=== PATIENT | male | born 1960 | race Caucasian/White ===

== ENCOUNTER 2019-01-06 21:37 | Inpatient (IN) | payer OTHER ==
[2019-01-06] MEDS ORDERED: ONDANSETRON HCL 4 MG TAB PO ONE (22:01)
[2019-01-06] MEDS ORDERED: ONDANSETRON 4 MG ODT ONE (22:11)
[2019-01-06] MEDS ORDERED: ONDANSETRON HCL 4 MG TAB ONE (22:12)
[2019-01-06 22:23] LABS: BASOPHILS % (AUTO) 1 % (0-3); EOSINOPHILS % (AUTO) 1 % (0-9); HEMATOCRIT 38 % (39-53); HEMOGLOBIN 12.3 gm/dl (13.5-17.7); MEAN CORPUSCULAR HEMOGLOBIN 33.9 pg (27.0-32.0); MEAN CORPUSCULAR HGB CONC 32.2 gm/dl (32.0-36.0); NEUTROPHILS % (AUTO) 74.4 % (37-80)
[2019-01-06] MEDS ORDERED: LACTULOSE 10 GM/15 ML SOL ONE (22:28)
[2019-01-06 22:39] LABS: ALBUMIN 1.5 gm/dl (3.4-5.0); BILIRUBIN,DIRECT 0.3 mg/dl (0.0-0.2); BILIRUBIN,TOTAL 0.6 mg/dl (0.2-1.0); CALCIUM 7.8 mg/dl (8.5-10.1); CARBON DIOXIDE 30.7 mEq/L (21-32); CREATININE 0.98 mg/dl (0.80-1.30); MEAN CORPUSCULAR VOLUME 106 fL (80-100); TOTAL PROTEIN 5.5 gm/dl (6.4-8.2)
[2019-01-06 22:40] LABS: POTASSIUM 3.5 mMol/L (3.5-5.1)
[2019-01-06] MEDS ORDERED: SPIRONOLACTONE 25 MG TAB PO SCH (23:45)
[2019-01-07] MEDS ORDERED: TRAMADOL HYDROCHLORIDE 50 MG TAB PO ONE (00:20)
[2019-01-07] MEDS ORDERED: TRAMADOL HYDROCHLORIDE 50 MG TAB ONE (00:29)
[2019-01-07 00:32] LABS: AMMONIA 29 umol/L (11-32)
[2019-01-07] MEDS ORDERED: METOCLOPRAMIDE HYDROCHLORIDE 5 MG/ML SOL IV ONE (01:04)
[2019-01-07] MEDS ORDERED: GUAIFENESIN 200 MG/10 ML SOL PO PRN (01:38)
[2019-01-07] MEDS: SODIUM CHLORIDE 0.9% FLUSH 10 ML SOL IV SCH ×2 (01:45→18:45)
[2019-01-07] MEDS ORDERED: TRAMADOL HYDROCHLORIDE 50 MG TAB PO PRN (02:11)
[2019-01-07] MEDS ORDERED: LACTULOSE 10 GM/15 ML SOL PR PRN (02:12)
[2019-01-07] MEDS: FUROSEMIDE 40 MG SOL IV SCH (02:38)
[2019-01-07 07:39] LABS: CALCIUM 7.9 mg/dl (8.5-10.1); CARBON DIOXIDE 27.6 mEq/L (21-32); CREATININE 0.88 mg/dl (0.80-1.30); POTASSIUM 3.6 mMol/L (3.5-5.1)
[2019-01-07 07:51] LABS: BASOPHILS % (AUTO) 2 % (0-3); EOSINOPHILS % (AUTO) 1 % (0-9); HEMATOCRIT 37 % (39-53); HEMOGLOBIN 11.4 gm/dl (13.5-17.7); LYMPHOCYTES % (AUTO) 20.9 % (10-50); MEAN CORPUSCULAR HEMOGLOBIN 33.5 pg (27.0-32.0); MEAN CORPUSCULAR HGB CONC 31.3 gm/dl (32.0-36.0); MONOCYTES % (AUTO) 7.8 % (0-12); NEUTROPHILS % (AUTO) 67.5 % (37-80)
[2019-01-07 07:53] LABS: MEAN CORPUSCULAR VOLUME 107 fL (80-100)
[2019-01-07] MEDS: TRAMADOL HYDROCHLORIDE 50 MG TAB PO PRN ×2 (08:31→15:46)
[2019-01-07] MEDS: METOPROLOL TARTRATE 25 MG TAB PO SCH (08:31)
[2019-01-07] MEDS: FOLIC ACID 1 MG TAB PO SCH (08:31)
[2019-01-07] MEDS: PANTOPRAZOLE SODIUM 40 MG ECT PO SCH (08:31)
[2019-01-07] MEDS: LACTULOSE 10 GM/15 ML SOL PO SCH ×2 (08:31→23:56)
[2019-01-07] MEDS: THIAMINE 100 MG TAB PO SCH (08:33)
[2019-01-07 08:36] LABS: INR 1.11 (0.86-1.12)
[2019-01-07] MEDS ORDERED: MELATONIN 3 MG TAB PO SCH (21:00)
[2019-01-08] MEDS: TRAMADOL HYDROCHLORIDE 50 MG TAB PO PRN (00:31)
[2019-01-08 07:10] LABS: CALCIUM 7.8 mg/dl (8.5-10.1); CARBON DIOXIDE 31.9 mEq/L (21-32); CREATININE 0.93 mg/dl (0.80-1.30); POTASSIUM 3.8 mMol/L (3.5-5.1)
[2019-01-08 07:18] LABS: BASOPHILS % (AUTO) 2 % (0-3); EOSINOPHILS % (AUTO) 1 % (0-9); HEMATOCRIT 39 % (39-53); LYMPHOCYTES % (AUTO) 13.9 % (10-50); MEAN CORPUSCULAR HEMOGLOBIN 33.5 pg (27.0-32.0); MEAN CORPUSCULAR HGB CONC 31.1 gm/dl (32.0-36.0); MONOCYTES % (AUTO) 4.9 % (0-12); NEUTROPHILS % (AUTO) 78.5 % (37-80)
[2019-01-08 07:32] LABS: MEAN CORPUSCULAR VOLUME 108 fL (80-100)
[2019-01-08] MEDS: METOPROLOL TARTRATE 25 MG TAB PO SCH (08:12)
[2019-01-08] MEDS: PANTOPRAZOLE SODIUM 40 MG ECT PO SCH (08:12)
[2019-01-08] MEDS: FOLIC ACID 1 MG TAB PO SCH (08:12)
[2019-01-08] MEDS: FUROSEMIDE 40 MG SOL IV SCH (08:13)
[2019-01-08] MEDS: THIAMINE 100 MG TAB PO SCH (08:13)
[2019-01-08] MEDS ORDERED: FUROSEMIDE 40 MG SOL IV SCH ×2 (08:15→09:00)
[2019-01-08 08:19] VITALS: BP 109/72; PULSE 94; RESP 18; TEMP 96.7; O2SAT 94
[2019-01-08] MEDS ORDERED: SPIRONOLACTONE 25 MG TAB PO SCH (09:00)
[2019-01-08] MEDS ORDERED: SERTRALINE HYDROCHLORIDE 50 MG TAB PO SCH (21:00)
== END 2019-01-08 12:25 | DRG 433 ==
LOC: ED 21:37 → ACUTE CARE 01-07 01:05
PROVIDERS: ADMIT Family Medicine; ATTEND Family Medicine
DX: K70.31 Alcoholic cirrhosis of liver with ascites (principal); J90 Pleural effusion, not elsewhere classified; E46 Unspecified protein-calorie malnutrition; R10.9 Unspecified abdominal pain; R06.02 Shortness of breath; R53.1 Weakness; E88.09 Other disorders of plasma-protein metabolism, not elsewhere classified
CPT/HCPCS: 36415; 71046; 74177; 80048; 80076; 82140; 85025; 85610; 85730; 94760; 99221; 99283; J1940; J2765; Q9967; A6232; A9270-GY

== ENCOUNTER 2019-01-11 16:01 | Inpatient (IN) | payer OTHER ==
[2019-01-11 16:31] LABS: ABG PH 7.41 (7.35-7.45)
[2019-01-11 16:36] LABS: BASOPHILS % (AUTO) 2 % (0-3); EOSINOPHILS % (AUTO) 1 % (0-9); HEMATOCRIT 36 % (39-53); HEMOGLOBIN 11.1 gm/dl (13.5-17.7); INR 1.09 (0.86-1.12); LYMPHOCYTES % (AUTO) 16.6 % (10-50); MEAN CORPUSCULAR HEMOGLOBIN 33.4 pg (27.0-32.0); MEAN CORPUSCULAR HGB CONC 31.1 gm/dl (32.0-36.0); MONOCYTES % (AUTO) 8.2 % (0-12); NEUTROPHILS % (AUTO) 72.9 % (37-80)
[2019-01-11 16:38] LABS: MEAN CORPUSCULAR VOLUME 107 fL (80-100)
[2019-01-11 16:44] LABS: ALBUMIN 1.3 gm/dl (3.4-5.0); ALKALINE PHOSPHATASE 163 IU/L (46-116); ALT 22 IU/L (14-63); AST 30 IU/L (15-37); BILIRUBIN,TOTAL 0.4 mg/dl (0.2-1.0); BLOOD UREA NITROGEN 11 mg/dl (7-18); CARBON DIOXIDE 31.7 mEq/L (21-32); CHLORIDE 101 mMol/L (98-107); CREATININE 0.97 mg/dl (0.80-1.30); GLUCOSE 109 mg/dl (74-106); SODIUM 137 mMol/L (136-145); TOTAL PROTEIN 5.1 gm/dl (6.4-8.2); TROP I < 0.017 ng/ml (0.000-0.056)
[2019-01-11] MEDS ORDERED: ALUMINUM/MAGNESIUM 30 ML SUS PO ONE (16:51)
[2019-01-11] MEDS ORDERED: LIDOCAINE HCL 2% (VISCOUS) 15 ML SOL MT ONE (16:51)
[2019-01-11] MEDS ORDERED: ALUMINUM/MAGNESIUM 30 ML SUS ONE (16:53)
[2019-01-11] MEDS ORDERED: LIDOCAINE HCL 2% (VISCOUS) 15 ML SOL ONE (16:53)
[2019-01-11] MEDS ORDERED: MENTHOL PO PRN (18:31)
[2019-01-11] MEDS ORDERED: GUAIFENESIN 200 MG/10 ML SOL PO PRN (18:31)
[2019-01-11] MEDS ORDERED: ALBUTEROL NEB 0.63 MG/3 ML SOL IH PRN (18:31)
[2019-01-11] MEDS ORDERED: TETRAHYDROZOLINE HCL EACHEYE PRN (18:31)
[2019-01-11] MEDS ORDERED: SPIRONOLACTONE 25 MG TAB PO ONE (18:40)
[2019-01-11] MEDS ORDERED: FUROSEMIDE 40 MG SOL IV ONE (19:30)
[2019-01-11] MEDS: SODIUM CHLORIDE 0.9% FLUSH 10 ML SOL IV PRN (19:55)
[2019-01-11] MEDS ORDERED: FUROSEMIDE 40 MG SOL IV SCH (21:00)
[2019-01-11] MEDS ORDERED: PATIENT EDUCATION 1 MISC PRN (21:08)
[2019-01-11] MEDS: SERTRALINE HYDROCHLORIDE 50 MG TAB PO SCH (21:15)
[2019-01-11] MEDS: ALBUTEROL/IPRATROPIUM 1 VIAL SOL INH SCH (21:16)
[2019-01-11] MEDS: MELATONIN 3 MG TAB PO SCH (21:16)
[2019-01-12] MEDS ORDERED: ALBUTEROL NEB SOL 2.5MG/3ML 1 VIAL SOL ONE (00:56)
[2019-01-12] MEDS: ALBUTEROL NEB SOL 2.5MG/3ML 1 VIAL SOL NEB PRN (01:29)
[2019-01-12] MEDS: SODIUM CHLORIDE 0.9% FLUSH 10 ML SOL IV SCH ×5 (01:33→21:24)
[2019-01-12 08:17] LABS: CALCIUM 7.4 mg/dl (8.5-10.1); CREATININE 0.88 mg/dl (0.80-1.30); POTASSIUM 3.8 mMol/L (3.5-5.1); TROP I 0.021 ng/ml (0.000-0.056)
[2019-01-12 08:24] LABS: CARBON DIOXIDE 33.1 mEq/L (21-32)
[2019-01-12] MEDS: PANTOPRAZOLE SODIUM 40 MG ECT PO SCH (09:50)
[2019-01-12] MEDS: SPIRONOLACTONE 25 MG TAB PO SCH ×2 (09:50→12:04)
[2019-01-12] MEDS: THIAMINE 100 MG TAB PO SCH (09:50)
[2019-01-12] MEDS: METOPROLOL TARTRATE 25 MG TAB PO SCH (09:50)
[2019-01-12] MEDS: FOLIC ACID 1 MG TAB PO SCH (09:50)
[2019-01-12] MEDS: FUROSEMIDE 40 MG SOL IV SCH ×2 (09:50→12:04)
[2019-01-12] MEDS: MULTIVITAMIN2 1 EA TAB PO SCH (09:53)
[2019-01-12] MEDS: ALBUTEROL/IPRATROPIUM 1 VIAL SOL INH SCH ×4 (09:57→21:24)
[2019-01-12 13:27] LABS: BLOOD UREA NITROGEN 11 mg/dl (7-18); CALCIUM 7.7 mg/dl (8.5-10.1); CHLORIDE 99 mMol/L (98-107); CREATININE 0.98 mg/dl (0.80-1.30); GLUCOSE 119 mg/dl (74-106); POTASSIUM 3.6 mMol/L (3.5-5.1); SODIUM 136 mMol/L (136-145); TROP I < 0.017 ng/ml (0.000-0.056)
[2019-01-12 13:43] LABS: CARBON DIOXIDE 32.8 mEq/L (21-32)
[2019-01-12] MEDS: SERTRALINE HYDROCHLORIDE 50 MG TAB PO SCH (21:24)
[2019-01-12] MEDS: MELATONIN 3 MG TAB PO SCH (21:29)
[2019-01-13 07:58] LABS: ALBUMIN 1.3 gm/dl (3.4-5.0); BILIRUBIN,TOTAL 0.7 mg/dl (0.2-1.0); CALCIUM 7.8 mg/dl (8.5-10.1); CREATININE 0.82 mg/dl (0.80-1.30)
[2019-01-13 08:02] LABS: CARBON DIOXIDE 32.9 mEq/L (21-32); POTASSIUM 3.7 mMol/L (3.5-5.1)
[2019-01-13] MEDS: METOPROLOL TARTRATE 25 MG TAB PO SCH (09:41)
[2019-01-13] MEDS: THIAMINE 100 MG TAB PO SCH (09:41)
[2019-01-13] MEDS: MULTIVITAMIN2 1 EA TAB PO SCH (09:41)
[2019-01-13] MEDS: FUROSEMIDE 40 MG SOL IV SCH ×2 (09:41→12:05)
[2019-01-13] MEDS: PANTOPRAZOLE SODIUM 40 MG ECT PO SCH (09:41)
[2019-01-13] MEDS: SPIRONOLACTONE 25 MG TAB PO SCH ×2 (09:41→12:50)
[2019-01-13] MEDS: FOLIC ACID 1 MG TAB PO SCH (09:41)
[2019-01-13] MEDS: ALBUTEROL/IPRATROPIUM 1 VIAL SOL INH SCH ×4 (09:44→20:29)
[2019-01-13] MEDS: SODIUM CHLORIDE 0.9% FLUSH 10 ML SOL IV SCH ×3 (09:49→20:26)
[2019-01-13] MEDS ORDERED: DOCUSATE SODIUM 100 MG SGL PO PRN (11:11)
[2019-01-13 11:28] LABS: BASOPHILS % (AUTO) 1 % (0-3); EOSINOPHILS % (AUTO) 1 % (0-9); HEMATOCRIT 35 % (39-53); HEMOGLOBIN 10.9 gm/dl (13.5-17.7); LYMPHOCYTES % (AUTO) 8.1 % (10-50); MEAN CORPUSCULAR HGB CONC 30.9 gm/dl (32.0-36.0); MONOCYTES % (AUTO) 7.4 % (0-12)
[2019-01-13 11:37] LABS: MEAN CORPUSCULAR VOLUME 107 fL (80-100)
[2019-01-13] MEDS ORDERED: FUROSEMIDE 100 MG SOL IV ONE (12:04)
[2019-01-13] MEDS: ENOXAPARIN 40 MG SOL SC SCH (12:50)
[2019-01-13] MEDS: TRAMADOL HYDROCHLORIDE 50 MG TAB PO PRN (16:55)
[2019-01-13] MEDS: SERTRALINE HYDROCHLORIDE 50 MG TAB PO SCH (20:28)
[2019-01-13] MEDS: MELATONIN 3 MG TAB PO SCH (20:28)
[2019-01-14] MEDS: SODIUM CHLORIDE 0.9% FLUSH 10 ML SOL IV SCH ×3 (06:34→21:51)
[2019-01-14] MEDS: SPIRONOLACTONE 25 MG TAB PO SCH ×2 (08:38→11:44)
[2019-01-14] MEDS: FOLIC ACID 1 MG TAB PO SCH (08:38)
[2019-01-14] MEDS: PANTOPRAZOLE SODIUM 40 MG ECT PO SCH (08:39)
[2019-01-14] MEDS: MULTIVITAMIN2 1 EA TAB PO SCH (08:39)
[2019-01-14] MEDS: THIAMINE 100 MG TAB PO SCH (08:39)
[2019-01-14] MEDS: METOPROLOL TARTRATE 25 MG TAB PO SCH (08:40)
[2019-01-14 08:54] LABS: CALCIUM 7.5 mg/dl (8.5-10.1); CREATININE 0.84 mg/dl (0.80-1.30); POTASSIUM 3.5 mMol/L (3.5-5.1)
[2019-01-14 08:58] LABS: CARBON DIOXIDE 33.4 mEq/L (21-32)
[2019-01-14] MEDS: ALBUTEROL/IPRATROPIUM 1 VIAL SOL INH SCH ×4 (09:50→22:01)
[2019-01-14] MEDS ORDERED: TORSEMIDE 10 MG TABLET ONE ×2 (09:55→11:40)
[2019-01-14] MEDS: TORSEMIDE 20 MG TAB PO SCH ×2 (09:57→11:45)
[2019-01-14] MEDS: ENOXAPARIN 40 MG SOL SC SCH (11:46)
[2019-01-14] MEDS: FUROSEMIDE 40 MG SOL IV SCH (21:51)
[2019-01-14] MEDS: MELATONIN 3 MG TAB PO SCH (21:57)
[2019-01-14] MEDS: SERTRALINE HYDROCHLORIDE 50 MG TAB PO SCH (22:00)
[2019-01-15] MEDS: ALBUTEROL NEB SOL 2.5MG/3ML 1 VIAL SOL NEB PRN (07:22)
[2019-01-15 07:23] LABS: BASOPHILS % (AUTO) 2 % (0-3); EOSINOPHILS % (AUTO) 2 % (0-9); HEMATOCRIT 33 % (39-53); LYMPHOCYTES % (AUTO) 17.1 % (10-50); MEAN CORPUSCULAR HEMOGLOBIN 32.8 pg (27.0-32.0); MEAN CORPUSCULAR HGB CONC 30.8 gm/dl (32.0-36.0); MONOCYTES % (AUTO) 11.1 % (0-12); NEUTROPHILS % (AUTO) 67.4 % (37-80)
[2019-01-15 07:31] LABS: ALBUMIN 1.2 gm/dl (3.4-5.0); BILIRUBIN,TOTAL 0.4 mg/dl (0.2-1.0); CALCIUM 7.8 mg/dl (8.5-10.1); CREATININE 0.81 mg/dl (0.80-1.30); TOTAL PROTEIN 4.7 gm/dl (6.4-8.2)
[2019-01-15 07:34] LABS: MEAN CORPUSCULAR VOLUME 106 fL (80-100)
[2019-01-15 07:36] LABS: CARBON DIOXIDE 37.3 mEq/L (21-32)
[2019-01-15] MEDS: ALBUTEROL/IPRATROPIUM 1 VIAL SOL INH SCH ×4 (09:46→21:18)
[2019-01-15] MEDS: METOPROLOL TARTRATE 25 MG TAB PO SCH (09:48)
[2019-01-15] MEDS: PANTOPRAZOLE SODIUM 40 MG ECT PO SCH (09:48)
[2019-01-15] MEDS: MULTIVITAMIN2 1 EA TAB PO SCH (09:48)
[2019-01-15] MEDS: THIAMINE 100 MG TAB PO SCH (09:48)
[2019-01-15] MEDS: SPIRONOLACTONE 25 MG TAB PO SCH ×2 (09:49→12:53)
[2019-01-15] MEDS: FOLIC ACID 1 MG TAB PO SCH (09:50)
[2019-01-15] MEDS: ENOXAPARIN 40 MG SOL SC SCH (10:53)
[2019-01-15] MEDS: TORSEMIDE 20 MG TAB PO SCH (10:56)
[2019-01-15] MEDS: TORSEMIDE 10 MG TABLET PO SCH (12:54)
[2019-01-15] MEDS: SERTRALINE HYDROCHLORIDE 50 MG TAB PO SCH (21:25)
[2019-01-15] MEDS: MELATONIN 3 MG TAB PO SCH (21:26)
[2019-01-15] MEDS: TRAMADOL HYDROCHLORIDE 50 MG TAB PO PRN (21:45)
[2019-01-16 07:38] LABS: BASOPHILS % (AUTO) 3 % (0-3); EOSINOPHILS % (AUTO) 5 % (0-9); HEMATOCRIT 32 % (39-53); HEMOGLOBIN 9.7 gm/dl (13.5-17.7); LYMPHOCYTES % (AUTO) 26.9 % (10-50); MEAN CORPUSCULAR HEMOGLOBIN 33.2 pg (27.0-32.0); MEAN CORPUSCULAR HGB CONC 30.8 gm/dl (32.0-36.0); MONOCYTES % (AUTO) 9.2 % (0-12); NEUTROPHILS % (AUTO) 56.2 % (37-80)
[2019-01-16 07:45] LABS: MEAN CORPUSCULAR VOLUME 108 fL (80-100)
[2019-01-16 07:48] LABS: CALCIUM 7.7 mg/dl (8.5-10.1); CREATININE 0.82 mg/dl (0.80-1.30); POTASSIUM 4.1 mMol/L (3.5-5.1)
[2019-01-16 07:53] LABS: CARBON DIOXIDE 36.8 mEq/L (21-32)
[2019-01-16] MEDS ORDERED: FUROSEMIDE 40 MG SOL IV ONE (08:20)
[2019-01-16] MEDS: SPIRONOLACTONE 25 MG TAB PO SCH ×2 (09:09→11:55)
[2019-01-16] MEDS: TORSEMIDE 10 MG TABLET PO SCH ×2 (09:09→11:54)
[2019-01-16] MEDS: ALBUTEROL/IPRATROPIUM 1 VIAL SOL INH SCH ×4 (09:09→20:03)
[2019-01-16] MEDS: FOLIC ACID 1 MG TAB PO SCH (09:11)
[2019-01-16] MEDS: METOPROLOL TARTRATE 25 MG TAB PO SCH (09:12)
[2019-01-16] MEDS: THIAMINE 100 MG TAB PO SCH (09:12)
[2019-01-16] MEDS: PANTOPRAZOLE SODIUM 40 MG ECT PO SCH (09:12)
[2019-01-16] MEDS: MULTIVITAMIN2 1 EA TAB PO SCH (09:12)
[2019-01-16] MEDS: SODIUM CHLORIDE 0.9% FLUSH 10 ML SOL IV PRN ×2 (10:51→20:07)
[2019-01-16] MEDS: ENOXAPARIN 40 MG SOL SC SCH (11:54)
[2019-01-16] MEDS: SERTRALINE HYDROCHLORIDE 50 MG TAB PO SCH (20:01)
[2019-01-16] MEDS: MELATONIN 3 MG TAB PO SCH (20:01)
[2019-01-17] MEDS: ALBUTEROL NEB SOL 2.5MG/3ML 1 VIAL SOL NEB PRN (07:36)
[2019-01-17 07:45] LABS: ALBUMIN 1.2 gm/dl (3.4-5.0); BILIRUBIN,TOTAL 0.3 mg/dl (0.2-1.0); CARBON DIOXIDE 37.4 mEq/L (21-32); CREATININE 0.85 mg/dl (0.80-1.30); POTASSIUM 4.2 mMol/L (3.5-5.1); TOTAL PROTEIN 4.7 gm/dl (6.4-8.2)
[2019-01-17 07:50] LABS: BASOPHILS % (AUTO) 2 % (0-3); EOSINOPHILS % (AUTO) 3 % (0-9); HEMATOCRIT 32 % (39-53); LYMPHOCYTES % (AUTO) 22.8 % (10-50); MEAN CORPUSCULAR HEMOGLOBIN 32.8 pg (27.0-32.0); MEAN CORPUSCULAR HGB CONC 31.4 gm/dl (32.0-36.0); MONOCYTES % (AUTO) 11.4 % (0-12); NEUTROPHILS % (AUTO) 60.8 % (37-80)
[2019-01-17 07:51] LABS: MEAN CORPUSCULAR VOLUME 105 fL (80-100)
[2019-01-17] MEDS: SPIRONOLACTONE 25 MG TAB PO SCH ×2 (09:10→15:37)
[2019-01-17] MEDS: TORSEMIDE 10 MG TABLET PO SCH ×2 (09:11→15:36)
[2019-01-17] MEDS: MULTIVITAMIN2 1 EA TAB PO SCH (09:12)
[2019-01-17] MEDS: METOPROLOL TARTRATE 25 MG TAB PO SCH (09:12)
[2019-01-17] MEDS: FOLIC ACID 1 MG TAB PO SCH (09:12)
[2019-01-17] MEDS: THIAMINE 100 MG TAB PO SCH (09:12)
[2019-01-17] MEDS: PANTOPRAZOLE SODIUM 40 MG ECT PO SCH (09:12)
[2019-01-17] MEDS: ALBUTEROL/IPRATROPIUM 1 VIAL SOL INH SCH ×4 (09:14→21:25)
[2019-01-17] MEDS: ENOXAPARIN 40 MG SOL SC SCH (10:45)
[2019-01-17] MEDS ORDERED: MAGNESIUM HYDROXIDE 30 ML SUS PO PRN (10:54)
[2019-01-17] MEDS ORDERED: BISACODYL 10 MG SUP PR PRN (12:00)
[2019-01-17] MEDS ORDERED: BISACODYL 10 MG SUP PR ONE (12:04)
[2019-01-17] MEDS: TRAMADOL HYDROCHLORIDE 50 MG TAB PO PRN (19:50)
[2019-01-17 20:32] LABS: APPEARANCE,URINE Clear; BILIRUBIN,URINE NEGATIVE (NEGATIVE); COLOR,URINE Yellow; GLUCOSE, URINE (UA) NEGATIVE (NEGATIVE); KETONES,URINE NEGATIVE (NEGATIVE); LEUKOCYTE ESTERASE ,URINE NEGATIVE (NEGATIVE); NITRATE,URINE NEGATIVE (NEGATIVE); OCCULT BLOOD,URINE NEGATIVE (NEG-TRACE); PH,URINE 8.5; UROBILINOGEN,URINE 0.2 (0.2-1.0 EU)
[2019-01-17 20:36] LABS: RBC,URINE 0-2 (0-3AV/HPF); WBC,URINE 0-2 (0-5AV/HPF)
[2019-01-17 20:37] LABS: BACTERIA 1+ (< 1+); CRYSTALS NEGATIVE (0-3 AVE/HPF)
[2019-01-17] MEDS: MELATONIN 3 MG TAB PO SCH (21:38)
[2019-01-17] MEDS: SERTRALINE HYDROCHLORIDE 50 MG TAB PO SCH (21:38)
[2019-01-18 08:03] LABS: BASOPHILS % (AUTO) 3 % (0-3); EOSINOPHILS % (AUTO) 4 % (0-9); HEMATOCRIT 35 % (39-53); HEMOGLOBIN 10.8 gm/dl (13.5-17.7); LYMPHOCYTES % (AUTO) 20.7 % (10-50); MEAN CORPUSCULAR HEMOGLOBIN 32.7 pg (27.0-32.0); MEAN CORPUSCULAR HGB CONC 31.2 gm/dl (32.0-36.0); MONOCYTES % (AUTO) 10.7 % (0-12); NEUTROPHILS % (AUTO) 62.5 % (37-80)
[2019-01-18 08:05] LABS: CALCIUM 8.3 mg/dl (8.5-10.1); CREATININE 0.87 mg/dl (0.80-1.30); MEAN CORPUSCULAR VOLUME 105 fL (80-100); POTASSIUM 4.2 mMol/L (3.5-5.1)
[2019-01-18] MEDS ORDERED: FUROSEMIDE 20mg SOL IV ONE (09:36)
[2019-01-18] MEDS: SODIUM CHLORIDE 0.9% FLUSH 10 ML SOL IV PRN (10:01)
[2019-01-18] MEDS: SPIRONOLACTONE 25 MG TAB PO SCH ×2 (10:02→13:32)
[2019-01-18] MEDS: TORSEMIDE 10 MG TABLET PO SCH ×2 (10:02→13:32)
[2019-01-18] MEDS: PANTOPRAZOLE SODIUM 40 MG ECT PO SCH (10:03)
[2019-01-18] MEDS: THIAMINE 100 MG TAB PO SCH (10:03)
[2019-01-18] MEDS: METOPROLOL TARTRATE 25 MG TAB PO SCH (10:03)
[2019-01-18] MEDS: FOLIC ACID 1 MG TAB PO SCH (10:03)
[2019-01-18] MEDS: MULTIVITAMIN2 1 EA TAB PO SCH (10:03)
[2019-01-18] MEDS: ALBUTEROL/IPRATROPIUM 1 VIAL SOL INH SCH ×4 (10:05→20:03)
[2019-01-18] MEDS: ENOXAPARIN 40 MG SOL SC SCH (11:20)
[2019-01-18 20:01] VITALS: TEMP 98.4
[2019-01-18] MEDS: MELATONIN 3 MG TAB PO SCH (20:04)
[2019-01-18] MEDS: SERTRALINE HYDROCHLORIDE 50 MG TAB PO SCH (20:05)
[2019-01-18] MEDS: TRAMADOL HYDROCHLORIDE 50 MG TAB PO PRN (20:10)
[2019-01-19 08:12] LABS: ALBUMIN 1.5 gm/dl (3.4-5.0); BILIRUBIN,TOTAL 0.3 mg/dl (0.2-1.0); CALCIUM 8.2 mg/dl (8.5-10.1); CREATININE 0.94 mg/dl (0.80-1.30); POTASSIUM 3.9 mMol/L (3.5-5.1); TOTAL PROTEIN 5.1 gm/dl (6.4-8.2)
[2019-01-19 08:27] LABS: CARBON DIOXIDE 38.8 mEq/L (21-32)
[2019-01-19 08:33] LABS: HEMATOCRIT 35 % (39-53); HEMOGLOBIN 10.7 gm/dl (13.5-17.7); MEAN CORPUSCULAR HEMOGLOBIN 32.5 pg (27.0-32.0); MEAN CORPUSCULAR HGB CONC 30.3 gm/dl (32.0-36.0)
[2019-01-19 08:55] LABS: MEAN CORPUSCULAR VOLUME 107 fL (80-100)
[2019-01-19 08:57] LABS: ANISOCYTOSIS SLIGHT; BAND NEUTROPHILS % (MANUAL) 2 %; BASOPHILS % (MANUAL) 0 % (0-3); EOSINOPHILS % (MANUAL) 4 % (0-9); LYMPHOCYTES % (MANUAL) 20 % (10-50); MONOCYTES % (MANUAL) 6 % (0-12); NEUTROPHILS % (MANUAL) 68 % (37-80); OVALOCYTES PRESENT; POIKILOCYTOSIS SLIGHT
[2019-01-19] MEDS: ALBUTEROL/IPRATROPIUM 1 VIAL SOL INH SCH (09:30)
[2019-01-19 09:33] VITALS: RESP 16
[2019-01-19 09:40] VITALS: PULSE 78; O2SAT 96
[2019-01-19] MEDS: TORSEMIDE 10 MG TABLET PO SCH (09:40)
[2019-01-19] MEDS: MULTIVITAMIN2 1 EA TAB PO SCH (09:41)
[2019-01-19] MEDS: SPIRONOLACTONE 25 MG TAB PO SCH (09:41)
[2019-01-19] MEDS: FOLIC ACID 1 MG TAB PO SCH (09:42)
[2019-01-19] MEDS: METOPROLOL TARTRATE 25 MG TAB PO SCH (09:42)
[2019-01-19] MEDS: THIAMINE 100 MG TAB PO SCH (09:42)
[2019-01-19] MEDS: PANTOPRAZOLE SODIUM 40 MG ECT PO SCH (09:42)
[2019-01-19 11:33] VITALS: BP 93/60
== END 2019-01-19 12:10 | DRG 206 ==
LOC: ED 16:01 → ACUTE CARE 18:25 → UNDOADMIN 18:25 → ACUTE CARE 19:00
PROVIDERS: ADMIT Family Medicine; ATTEND Family Medicine
DX: R09.02 Hypoxemia (principal); E46 Unspecified protein-calorie malnutrition; J90 Pleural effusion, not elsewhere classified; L97.921 Non-pressure chronic ulcer of unspecified part of left lower leg limited to breakdown of skin; R07.9 Chest pain, unspecified; K70.31 Alcoholic cirrhosis of liver with ascites; R60.9 Edema, unspecified; E88.09 Other disorders of plasma-protein metabolism, not elsewhere classified; R06.02 Shortness of breath; I10 Essential (primary) hypertension
CPT/HCPCS: 36415; 36600; 71045; 71046; 80048; 80053; 81001; 82803; 84484; 85007; 85025; 85027; 85610; 85730; 87040; 93005; 93012; 94150; 94640; 94669; 94762; 99231; 99251; 99284; 99285; J1650; J1940; J7613; A6232; A9270-GY